=== PATIENT | male | born 1955 | race Caucasian/White ===

== ENCOUNTER 2016-03-25 04:36 | Emergency (ER) | payer OTHER ==
[2016-03-25] MEDS ORDERED: Meclizine HCl 25 MG TAB ONE (06:30)
== END 2016-03-25 07:37 | disposition home or self-care (01) ==
LOC: ER 04:36
DX: R42 Dizziness and giddiness (principal); Z87.891 Personal history of nicotine dependence
CPT/HCPCS: 36415; 70450; 80053; 81003; 82553; 82947; 84484; 85025; 85610; 85730; 87804; 93005